=== PATIENT | female | born 1990 | race Caucasian/White ===

== ENCOUNTER → 2017-09-19 11:19 | Outpatient (REF) | payer OTHER, SELFPAY ==
[2017-09-19 14:29] LABS: Basophils % 0.5 % (0.1-2.0); Eosinophils # 0.1 K/mm3 (0.0-0.4); Eosinophils % 1.1 % (0.1-12.0); Hematocrit 44.1 % (37.0-47.0); Hemoglobin 13.9 g/dL (12.2-16.2); Lymphocytes # 2.2 K/mm3 (0.7-4.5); Lymphocytes % 26.9 K/mm3 (10-50); Mean Corpuscular HGB Conc 31.5 g/dL (31.8-35.4); Mean Corpuscular Hemoglobin 29.4 pg (27.0-31.2); Mean Corpuscular Volume 93.5 fl (81-99); Mean Platelet Volume 9.3 fl (7.4-10.4); Monocytes # 0.4 K/mm3 (0.1-1.0); Neutrophils # 5.4 K/mm3 (1.8-7.8); Neutrophils % 66.5 % (37.0-80.0); Platelet Count 247 K/mm3 (142-424); Red Blood Count 4.72 M/mm3 (4.20-5.40); Red Cell Distribution Width 12.7 % (11.5-17.5); White Blood Count 8.1 K/mm3 (4.8-10.8)
[2017-09-19 14:33] LABS: Alanine Aminotransferase 26 U/L (12-78); Albumin Level 4.2 gm/dL (3.4-5.0); Albumin/Globulin Ratio 1.4 (1.1-1.8); Alkaline Phosphatase 110 U/L (46-116); Anion Gap 11.5 mEq/L (5-15); Aspartate Amino Transferase 19 U/L (15-37); Bilirubin,Total 0.3 mg/dL (0.2-1.0); Blood Urea Nitrogen 10 mg/dL (7-18); Calcium 9.5 mg/dL (8.5-10.1); Carbon Dioxide 28 mmol/L (21.0-32.0); Chloride 105 mmol/L (98-107); Cholesterol 123 mg/dL (140-200); Creatinine,Serum 0.76 mg/dL (0.55-1.02); Estimated Glomerular Filt Rate 93 ml/min (>60); Free T4 (Free Thyroxine) 1.05 ng/dl (0.76-1.46); GFR (African American) 112 ML/MIN (>60); Glucose 87 mg/dL (74-106); HDL Cholesterol 41 mg/dL (29-89); LDL Cholesterol 60 mg/dL (0-130); Potassium 4.5 mmoL/L (3.5-5.1); Sodium 140 mmol/L (136-145); Total Protein,Serum 7.2 gm/dL (6.4-8.2); Triglycerides 108 mg/dL (30-200); VLDL Cholesterol 22 mg/dL (0-40)
[2017-09-19 14:47] LABS: Hemoglobin A1C 5.3 % (0.0-7.0)
[2017-09-20 06:19] LABS: Vitamin D 25 Hydroxy 13.4 ng/mL (30.0-100.0)
== END ==
LOC: LAB 11:19
PROVIDERS: Visit Provider Nurse Practitioner Family
DX: R10.11 Right upper quadrant pain (principal); R10.9 Unspecified abdominal pain; R53.83 Other fatigue
CPT/HCPCS: 80053; 80061; 82652; 83036; 84439; 84443; 85025

== ENCOUNTER → 2020-06-22 18:50 | Outpatient (CLI) | payer OTHER, SELFPAY ==
[2020-06-22 19:04] LABS: Basophils % 0.6 % (0.1-2.0); Eosinophils # 0.1 K/mm3 (0.0-0.4); Eosinophils % 1.1 % (0.1-12.0); Hematocrit 45.5 % (37.0-47.0); Hemoglobin 14.3 g/dL (12.2-16.2); Lymphocytes # 2.2 K/mm3 (0.7-4.5); Lymphocytes % 36.3 % (10-50); Mean Corpuscular HGB Conc 31.4 g/dL (31.8-35.4); Mean Corpuscular Volume 95.8 fl (81-99); Mean Platelet Volume 10.6 fl (7.4-10.4); Monocytes # 0.5 K/mm3 (0.1-1.0); Monocytes % 7.6 % (1.7-9.3); Neutrophils # 3.4 K/mm3 (1.8-7.8); Neutrophils % 54.4 % (37.0-80.0); Platelet Count 303 K/mm3 (142-424); Red Blood Count 4.75 M/mm3 (4.20-5.40); Red Cell Distribution Width 12.7 % (11.5-17.5); White Blood Count 6.2 K/mm3 (4.8-10.8)
[2020-06-22 20:37] LABS: Alanine Aminotransferase 171 U/L (12-78); Albumin Level 4.6 g/dl (3.5-5.0); Albumin/Globulin Ratio 1.4 (1.1-1.8); Alkaline Phosphatase 142 U/L (38-126); Anion Gap 12.6 mEq/L (5-15); Aspartate Amino Transferase 81 U/L (14-36); Bilirubin,Total 0.3 mg/dl (0.2-1.3); Blood Urea Nitrogen 17 mg/dl (7-17); Carbon Dioxide 26 mmol/L (22.0-30.0); Chloride 105 mmol/L (98-107); Chol/HDL Ratio 2.6 (1-3.5); Cholesterol 157 mg/dl (140-200); Estimated Glomerular Filt Rate 100 ml/min (>60); GFR (African American) 121 ML/MIN (>60); Globulin 3.2 g/dL (1.3-3.2); Glucose 92 mg/dl (74-100); HDL Cholesterol 61 mg/dl (40-60); Potassium 4.6 mmoL/L (3.5-5.1); Sodium 139 mmol/L (136-145); Total Protein,Serum 7.8 g/dl (6.3-8.2); Triglycerides 90 mg/dl (30-150); VLDL Cholesterol 18 mg/dL (0-40)
[2020-06-22 20:49] LABS: Direct LDL Cholesterol 70.38 mg/dL (100-129)
[2020-06-22 20:54] LABS: 25-OH Vitamin D, Total 15.6 ng/mL (30-100)
[2020-06-22 20:55] LABS: Free T4 (Free Thyroxine) 1.07 ng/dl (0.78-2.19)
[2020-06-22 21:09] LABS: Thyroid Stimulating Hormone 1.44 uIU/mL (0.465-4.68)
[2020-06-24 13:44] LABS: Hep A Ab, IgM Negative (Negative); Hep A Ab, Total Positive (Negative); Hep B Core Ab, Total Negative (Negative)
[2020-06-25 10:15] LABS: Hep B Surface Ab, Qual Non Reactive (.)
[2020-06-26 14:47] LABS: HCV Genotype Charge YES; Hepatitis C Genotype 1a (.)
== END ==
PROVIDERS: Visit Provider Emergency Medicine
DX: B19.20 Unspecified viral hepatitis C without hepatic coma (principal); R53.83 Other fatigue; E55.9 Vitamin D deficiency, unspecified
CPT/HCPCS: 80053; 80061; 82306; 84439; 84443; 85025; 86704; 86706; 86708; 87522; 87902

== ENCOUNTER 2020-10-09 02:11 | Emergency (ER) | payer OTHER, SELFPAY ==
[2020-10-09 02:14] VITALS: BP 106/77; PULSE 103; RESP 18; TEMP 36.8; O2SAT 100; BMI 26.6
--- NOTE | 2020-10-09 02:15 | ECG_ITS ---
APPROVED REPORT Exam: Resting ECG HR:96 bpm ECG Measurements Heart Rate 96 AXES MN 156 P 74 QRSd 88 QRS 75 QT 356 T 43 QTc 449 Conclusion Normal sinus rhythm Normal ECG Electronically signed by : Lupillo Jimenez, 10/11/2020 07:13:53
[2020-10-09 02:41] LABS: Chloride 98 mmol/L (98-107); Sodium 133 mmol/L (136-145)
[2020-10-09 02:42] LABS: Potassium 4.6 mmoL/L (3.5-5.1)
[2020-10-09 02:44] LABS: Alanine Aminotransferase 188 U/L (12-78); Albumin Level 4.7 g/dl (3.5-5.0); Alkaline Phosphatase 121 U/L (38-126); Anion Gap 13.6 mEq/L (5-15); Aspartate Amino Transferase 107 U/L (14-36); Bilirubin,Total 0.5 mg/dl (0.2-1.3); Blood Urea Nitrogen 17 mg/dl (7-17); Calcium 9.1 mg/dl (8.4-10.2); Carbon Dioxide 26 mmol/L (22.0-30.0); Creatinine Clearance Estimated 93 mL/min (50-200); Estimated Glomerular Filt Rate 66 ml/min (>60); GFR (African American) 80 ML/MIN (>60); Globulin 2.4 g/dL (1.3-3.2); Glucose 242 mg/dl (74-100); Total Protein,Serum 7.1 g/dl (6.3-8.2)
[2020-10-09 02:45] LABS: Acetaminophen < 10 ug/ml (10-30); Salicylate < 1.0 mg/dL (2.0-20.0)
[2020-10-09 02:46] LABS: Ethyl Alcohol < 10 mg/dl (0-10)
[2020-10-09 02:48] LABS: HCG Qualitative, Serum Negative (Negative)
[2020-10-09 02:55] VITALS: BP 128/69; PULSE 96; RESP 18; TEMP 36.6; O2SAT 100
[2020-10-09 02:58] LABS: Troponin I < 0.01 ng/ml (0.00-0.034)
== END 2020-10-09 02:59 | disposition left against medical advice (07) ==
LOC: ER 02:34
PROVIDERS: Emergency Provider Emergency Medicine; PCP Emergency Medicine
DX: Z53.21 Procedure and treatment not carried out due to patient leaving prior to being seen by health care provider (principal); T50.901A Poisoning by unspecified drugs, medicaments and biological substances, accidental (unintentional), initial encounter
CPT/HCPCS: 80053; 80329; 84484; 84703; 93005; 99282

== ENCOUNTER 2020-12-19 08:54 | Emergency (ER) | payer OTHER, SELFPAY ==
[2020-12-19 08:55] VITALS: BP 111/73; PULSE 76; RESP 16; TEMP 36.6; O2SAT 98; BMI 26.6
--- NOTE | 2020-12-19 08:55 | ECG_ITS ---
APPROVED REPORT Exam: Resting ECG HR:63 bpm ECG Measurements Heart Rate 63 AXES NC 138 P 4 QRSd 80 QRS 13 QT 412 T 8 QTc 421 Conclusion Normal sinus rhythm Normal ECG Electronically signed by : Lupillo Jimenez, 12/20/2020 20:57:57
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
--- NOTE | 2020-12-19 08:59 | XR_ITS ---
PROCEDURE INFORMATION: Exam: XR Chest Exam date and time: 12/19/2020 8:59 AM Age: 30 years old Clinical indication: Chest pressure; Patient HX: Chest pain , smoker, no SX; Additional info: Cp TECHNIQUE: Imaging protocol: XR of the chest. Views: 1 view. COMPARISON: No relevant prior studies available. FINDINGS: Lungs: No consolidation. Pleural spaces: No pneumothorax. Heart/Mediastinum: No cardiomegaly. Bones/joints: No acute abnormality. IMPRESSION: No acute findings.
[2020-12-19 09:23] LABS: Basophils % 0.5 % (0.1-2.0); Eosinophils # 0.1 K/mm3 (0.0-0.4); Eosinophils % 1.4 % (0.1-12.0); Hemoglobin 13.1 g/dL (12.2-16.2); Lymphocytes # 1.7 K/mm3 (0.7-4.5); Lymphocytes % 36.6 % (10-50); Mean Corpuscular HGB Conc 32.6 g/dL (31.8-35.4); Mean Corpuscular Hemoglobin 29.8 pg (27.0-31.2); Mean Corpuscular Volume 91.4 fl (81-99); Mean Platelet Volume 8.6 fl (7.4-10.4); Monocytes # 0.4 K/mm3 (0.1-1.0); Monocytes % 8.4 % (1.7-9.3); Neutrophils # 2.5 K/mm3 (1.8-7.8); Neutrophils % 53.1 % (37.0-80.0); Platelet Count 211 K/mm3 (142-424); Red Blood Count 4.38 M/mm3 (4.20-5.40); Red Cell Distribution Width 13.1 % (11.5-17.5); White Blood Count 4.6 K/mm3 (4.8-10.8)
[2020-12-19 09:30] LABS: Chloride 106 mmol/L (98-107); Sodium 140 mmol/L (136-145)
[2020-12-19 09:33] LABS: Blood Urea Nitrogen 15 mg/dl (7-17); Creatinine Clearance Estimated 116 mL/min (50-200); Estimated Glomerular Filt Rate 85 ml/min (>60); GFR (African American) 103 ML/MIN (>60)
[2020-12-19 09:34] LABS: Calcium 8.9 mg/dl (8.4-10.2); Carbon Dioxide 27 mmol/L (22.0-30.0); Glucose 89 mg/dl (74-100)
[2020-12-19 09:39] LABS: HCG Qualitative, Serum Negative (Negative)
[2020-12-19 09:49] LABS: Troponin I < 0.01 ng/ml (0.00-0.034)
[2020-12-19 10:13] VITALS: BP 127/68; PULSE 88; RESP 16; TEMP 36.8; O2SAT 98
== END 2020-12-19 10:15 | disposition home or self-care (01) ==
PROVIDERS: Emergency Provider Family Medicine; PCP Emergency Medicine
DX: R07.89 Other chest pain (principal); F41.8 Other specified anxiety disorders; F17.210 Nicotine dependence, cigarettes, uncomplicated; Z79.899 Other long term (current) drug therapy
CPT/HCPCS: 71045; 80048; 84484; 84703; 85025; 93005; 99283

== ENCOUNTER 2021-01-29 14:55 | Emergency (ER) | payer OTHER, SELFPAY ==
[2021-01-29 17:28] VITALS: BP 115/66; PULSE 91; RESP 22; TEMP 36.7; O2SAT 98; BMI 26.7
[2021-01-29 17:38] VITALS: BP 115/66; PULSE 91; RESP 22; TEMP 36.8
--- NOTE | 2021-01-29 18:26 | HMH.EDUTC ---
[facility] [place] Impression: Viral syndrome, Exposure to COVID-19 virus Disposition: Home, Self-Care Condition on Discharge: Good Instructions: DI for Viral Syndrome, DI for COVID-19 (Suspected or Confirmed ), Preventing the Spread of Coronavirus Discharge Instructions Additional Instructions: Drink plenty of fluids. Take tylenol for pain or fever. Return if you begin to have difficulty breathing. Follow up with your regular doctor. GO TO THE ER FOR ANY WORSENING SYMPTOMS Quarantine until you know the results of your covid-19 test. If it is positive, the health department should call you and give you further instructions about your length of Quarantine and other things. Notify your school or workplace of your results and follow their instructions regarding return to work/school. Prescriptions: Brompheniramine/Pseudoephed/Dm [Bromfed Dm Cough Syrup] 5 ml PO Q6HP PRN #240 ml PRN Reason: Cough Transmission Status: Received by [facility] #[id number] Ondansetron [Zofran 4mg ODT] 4 mg PO DAILYP PRN #12 tab PRN Reason: Nausea Transmission Status: Received by [facility] #[id number] Referrals: Adrian Feliciano MD [Primary Care Provider] - Forms: Work/School Release Time of Disposition: 18:27 Medical Decision Making - Medical Records Medical records reviewed: No: I reviewed the patient's medical records. - Hugh Inquiry Pt receiving controlled substance: No Vital Signs: 01/29/21 17:28 01/29/21 17:38 Temperature 98.1 F 98.2 F Temperature Source Temporal Artery Scan Pulse Rate 91 H Pulse Rate [Left] 91 H Respiratory Rate 22 22 Blood Pressure 115/66 Blood Pressure [Right Arm] 115/66 Blood Pressure Mean [Right Arm] 82 02 Sat by Pulse Oximetry 98 - Lab Data Lab Results 01/29/21 22:38: Strep Scn Rapid Clinic Negative Orders (Tests/Meds): ORDERS Category Date Time Status Strep Screen Confirmation Stat Micro 01/29/21 22:38 [place] [facility] [place] - General Stated complaint: covid test Time Seen by Provider: 01/29/21 17:45 Mode of Arrival: Ambulatory Source of Information: Patient Limitations: No Limitations HEENT Symptoms (Recalled from RN notes): Yes (R ear ache) Resp Symptoms (Recalled from RN notes): Yes (cough) Skin Symptoms (Recalled from RN notes): No MS Symptoms (Recalled from RN notes): No Functional Status (Recalled from RN notes): body aches and chills - History of Present Illness Provider Complaint: pt c/o cough, stomach ache, R ear ache, myalgia and chills. - Related Data Previous Rx's Medication Instructions Recorded cholecalciferol (vitamin D3) 25 25 mcg PO DAILY 90 Days #90 cap 06/26/20 mcg (1,000 unit) capsule ergocalciferol (vitamin D2) 1,250 1,250 mcg PO WEEKLY #5 cap 06/26/20 mcg (50,000 unit) capsule buspirone 7.5 mg tablet See Rx Instructions .ROUTE 11/04/20 .COMPLEX #180 tab bupropion HCl 100 mg tablet See Rx Instructions .ROUTE 11/05/20 .COMPLEX #180 tab Brompheniramine/Pseudoephed/Dm 5 ml PO Q6HP PRN #240 ml 01/29/21 [Bromfed Dm Cough Syrup] Ondansetron [Zofran 4mg ODT] 4 mg PO DAILYP PRN #12 tab 01/29/21 Allergies Allergy/AdvReac Type Severity Reaction Status Date / Time No Known Allergies Allergy Verified 06/22/20 09:18 - Worker's Comp Is this a Worker's Comp case?: No [facility] History - Hepatitis A Screen Drug use history?: No High risk sexual behaviors?: No History of sexually transmitted infection?: No Currently employed?: No Childcare worker?: No Do you have indoor plumbing?: Yes Do you have electricity?: Yes Attestation statement:: This patient has been screened for Hepatitis A risk factors. I have reviewed the patient's past medical history: Yes Medical History: Reports:: Anxiety, Depression Denies:: Cancer, Diabetes Mellitus Type 1, Diabetes Mellitus Type 2, MRSA Laterality Cases: Bilateral: Tonsillectomy, Other Other Surgeries: Yes: Amputation: No
[2021-01-29 22:39] LABS: UTC Strep Screen (Rapid) Negative (Negative)
--- NOTE | 2021-01-31 17:23 | PC.NURSE ---
informed patient that she is positive
== END 2021-01-29 18:32 | disposition home or self-care (01) ==
PROVIDERS: Emergency Provider Nurse Practitioner Family; PCP Emergency Medicine
DX: B34.9 Viral infection, unspecified (principal); U07.1 COVID-19
CPT/HCPCS: 87880; 99202; C9803; G0463; U0003; U0005

== ENCOUNTER 2021-04-10 08:24 | Emergency (ER) | payer OTHER, SELFPAY ==
[2021-04-10 08:24] VITALS: BP 105/69; PULSE 77; RESP 16; TEMP 36.6; O2SAT 96; BMI 25.7
--- NOTE | 2021-04-10 08:51 | HMH.EDGENADL ---
ED Disposition Clinical Impression: Dental infection Disposition: Home, Self-Care Condition on Discharge: Good Additional Instructions: Please follow-up with urgent dental clinic, they open at 7:30 in the morning, but is advised to get there earlier. Prescriptions: Clindamycin HCl 300 mg PO Q8 5 Days #30 cap Transmission Status: Pending to [facility] #[id number] Referrals: Adrian Feliciano MD [Primary Care Provider] - - Critical Care Critical Care Time: No Attestation: On 04/10/21, the high probability of a clinically significant, sudden or life threatening deterioration of the following system(s) required my full and direct attention, intervention and personal management. The time I documented below is in addition to time spent performing reported procedures but includes the following listed in this critical care notation. Medical Decision Making - Medical Records Medical records reviewed: Yes: I reviewed the patient's medical records. - Hugh Inquiry Pt receiving controlled substance: No Vital Signs: 04/10/21 08:24 Temperature 98 F Temperature Source Oral Pulse Rate [Radial] 77 Respiratory Rate 16 Blood Pressure [Right Arm] 105/69 L Blood Pressure Mean [Right Arm] 81 Blood Pressure Position [Right Arm] Sitting 02 Sat by Pulse Oximetry 96 Oxygen Delivery Method Room Air Orders (Tests/Meds): ED MEDICATIONS Discontinued Medications Generic Name Dose Route Start Last Admin Trade Name Sohailq PRN Reason Stop Dose Admin Ibuprofen 600 mg 04/10/21 08:50 Ibuprofen 600 Mg Tablet PO 04/10/21 08:51 ONCE ONE Medical Decision Narrative: Patient is a 30-year-old female presents the ED today for further evaluation of left mandibular molar pain. Patient is well-appearing on initial evaluation in no acute distress with stable vital signs, there is no large abscess on exam at the tooth site, patient does not have any compromise of airway breathing or circulation, no systemic symptoms of fever, although the tooth does appear to be infected. Will prescribe clindamycin, and perform nerve block of the area. Patient briefed on the usage and caution of use of antibiotics, encouraged to use probiotics during the time she is taking these, informed of evidence of worsening infection and indications return to the ED. Given the patient's appointment is 10 days away, I have given her referral information for several urgent care dental clinics down at [facility] and down in [place], which will be able to see her sooner. General Adult HPI - General Chief complaint: PAIN Stated complaint: toothache Time Seen by Provider: 04/10/21 08:51 Mode of Arrival: Ambulatory Limitations: No Limitations Description of Symptoms (Recalled from ER Triage Doc. by RN): TO ED PER PVT CAR WITH C/O LT LOWER TOOTH PAIN X SEVERAL WEEKS STATES HAS AN APPT WITH DENTAL 04/20. TAKING TYLENOL AND IBUPROFEN AT HOME WITH NO RELIEF OF SYMPTOMS. PT DENIES ANY FEVERS, CHILLS - History of Present Illness HPI narrative: Patient is a 30-year-old female presents the ED today for further evaluation of left mandibular molar pain. Patient states that this pain has been present for a month, but has exacerbated in the last couple of days. Patient states she has a history of IV drug use, and states that she has multiple teeth that need to be taken care of, has an appointment scheduled for the of this month, but states that she presents today as the pain is too much for her to eat at home. Patient states she has been able to swallow well, without difficulty with states that there is a lot of pain associated in the left lower mandible area. [place] any fevers, chills, shortness of breath chest pain cough, rhinorrhea, abdominal pain nausea or vomiting. - Related Data Previous Rx's Medication Instructions Recorded cholecalciferol (vitamin D3) 25 25 mcg PO DAILY 90 Days #90 cap 06/26/20 mcg (1,000 unit) capsule er
[2021-04-10 09:10] VITALS: BP 120/78; PULSE 78; RESP 16; TEMP 37; O2SAT 98
== END 2021-04-10 09:11 | disposition home or self-care (01) ==
PROVIDERS: Emergency Provider Student in an Organized Health Care Education/Training Program; PCP Emergency Medicine
DX: K04.7 Periapical abscess without sinus (principal); F17.210 Nicotine dependence, cigarettes, uncomplicated; F41.8 Other specified anxiety disorders
CPT/HCPCS: 99281

== ENCOUNTER 2021-05-09 08:33 | Emergency (ER) | payer OTHER, SELFPAY ==
[2021-05-09 08:34] VITALS: BP 109/70; PULSE 60; RESP 20; TEMP 36.6; O2SAT 98; BMI 25.7
--- NOTE | 2021-05-09 08:38 | HMH.EDGENADL ---
ED Disposition Clinical Impression: Vertebral compression fracture Qualifiers: Encounter type: initial encounter Fracture of vertebra location: thoracic Thoracic vertebra fracture level: T12 Qualified Code(s): S22.080A - Wedge compression fracture of T11-T12 vertebra, initial encounter for closed fracture Disposition: Home, Self-Care Condition on Discharge: Fair Instructions: DI for Vertebral Fracture Additional Instructions: Percocet as needed for pain. Off work until seen by spine surgeon. Follow-up with spine surgery, call for appointment: Dr. Dread Barcenas [facility] [address] [place] [address] OR [facility] [address], [place] [address] Take your x-ray/CT disc with you to appointment. Additional instructions for CONTROLLED SUBSTANCES: You have been prescribed a medication that is a controlled substance. Controlled substances include pain medications known as opiates and sedative nerve medications known as benzodiazepines. Tramadol, fioricet, and gabapentin are also controlled substances. Some common opiates include: Codeine (such as Tylenol #3) Hydrocodone (Vicodin, Lortab, Lorcet, [place]) Oxycodone (Percocet, Percodan, Oxycodone, Oxy IR) Some common benzodiazepines include: Diazepam (Valium) Lorazepam (Ativan) Alprazolam (Xanax) Clonazepam (Klonopin) Oxazepam (Serax) All of these controlled substances are highly addictive and frequently abused. Misuse can and frequently does lead to addiction as well as overdose and . Medication should be stored in a locked cabinet or other secure storage unit. Do not store the medication in a motor vehicle. Short term supplies, 3 days or less, are prescribed because of the highly addictive nature of the medication. Any of the controlled substance medication NOT taken should be disposed of properly and NOT SAVED. The recommended method of disposing of unused medications is: Place the medicines in a sealable plastic bag. If the medicine is a solid, crush it or add water to dissolve it. Add something undesirable (cat litter, coffee grounds, etc.) Dispose of sealed bag in household trash Do not flush or pour unused medicines down a sink or drain. Controlled substances should not be shared, given away or sold. Because of the addictive nature and frequent abuse, these medications are sometimes stolen. These medications should be kept in a safe place where they cannot be stolen. Do not keep them in your car or purse. Lost or stolen prescriptions for controlled substances WILL NOT BE REFILLED in this emergency department, regardless of whether a police report was filed. Prescriptions: Oxycodone HCl/Acetaminophen [Percocet 5/325mg tablet] 1 tab PO Q6HP PRN #20 tablet PRN Reason: Moderate To Severe Pain Transmission Status: Sent to [id number] Oxycodone HCl/Acetaminophen [Percocet 5/325mg tablet] 1 tab PO Q6HP PRN #20 tab PRN Reason: Moderate To Severe Pain Transmission Status: Received by [facility] #[id number] Referrals: Adrian Feliciano MD [Primary Care Provider] - Forms: Work/School Release - Critical Care Critical Care Time: No Attestation: On , the high probability of a clinically significant, sudden or life threatening deterioration of the following system(s) required my full and direct attention, intervention and personal management. The time I documented below is in addition to time spent performing reported procedures but includes the following listed in this critical care notation. Medical Decision Making - Hugh Inquiry Pt receiving controlled substance: Yes Hugh was queried for this patient: Yes Risks and benefits of using a controlled substance: were discussed with pt by me Vital Signs: 05/09/21 08:34 Temperature 97.8 F Temperature Source Ora
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
--- NOTE | 2021-05-09 08:59 | PC.NURSE ---
blood sent to the lab
[2021-05-09 09:15] VITALS: BP 132/74; PULSE 78; RESP 16; O2SAT 98
[2021-05-09 09:19] LABS: HCG Qualitative, Serum Negative (Negative)
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
[2021-05-09 12:24] VITALS: BP 122/68; PULSE 78; RESP 16; TEMP 36.8; O2SAT 97
== END 2021-05-09 12:25 | disposition home or self-care (01) ==
PROVIDERS: Emergency Provider Emergency Medicine; PCP Emergency Medicine
DX: S22.080A Wedge compression fracture of T11-T12 vertebra, initial encounter for closed fracture (principal); V58.0XXA Driver of pick-up truck or van injured in noncollision transport accident in nontraffic accident, initial encounter; Y92.488 Other paved roadways as the place of occurrence of the external cause
CPT/HCPCS: 71045; 71275; 72128; 72131; 72170; 84703; 96367; 96374; 96375; 99282; J2405; Q9967

== ENCOUNTER → 2021-05-25 11:52 | Outpatient (CLI) | payer OTHER, SELFPAY ==
[2021-05-25 12:24] LABS: Basophils # 0.1 K/mm3 (0-0.2); Basophils % 1.3 % (0.1-2.0); Eosinophils # 0.1 K/mm3 (0.0-0.4); Hematocrit 44.3 % (37.0-47.0); Hemoglobin 14.1 g/dL (12.2-16.2); Lymphocytes % 36.6 % (10-50); Mean Corpuscular HGB Conc 31.8 g/dL (31.8-35.4); Mean Corpuscular Hemoglobin 29.9 pg (27.0-31.2); Mean Corpuscular Volume 93.9 fl (81-99); Mean Platelet Volume 9.1 fl (7.4-10.4); Monocytes # 0.3 K/mm3 (0.1-1.0); Monocytes % 5.9 % (1.7-9.3); Neutrophils % 55.2 % (37.0-80.0); Platelet Count 255 K/mm3 (142-424); Red Blood Count 4.72 M/mm3 (4.20-5.40); Red Cell Distribution Width 12.8 % (11.5-17.5); White Blood Count 5.4 K/mm3 (4.8-10.8)
[2021-05-25 12:39] LABS: INR 0.93 (0.9-1.1); Prothrombin Time 10.6 seconds (10.1-12.5)
[2021-05-25 12:53] LABS: Alanine Aminotransferase 76 U/L (12-78); Albumin/Globulin Ratio 1.8 (1.1-1.8); Alkaline Phosphatase 119 U/L (38-126); Anion Gap 13.6 mEq/L (5-15); Aspartate Amino Transferase 47 U/L (14-36); Bilirubin,Total 0.6 mg/dl (0.2-1.3); Blood Urea Nitrogen 15 mg/dl (7-17); Calcium 10.1 mg/dl (8.4-10.2); Carbon Dioxide 28 mmol/L (22.0-30.0); Chloride 100 mmol/L (98-107); Estimated Glomerular Filt Rate 99 ml/min (>60); GFR (African American) 120 ML/MIN (>60); Globulin 2.8 g/dL (1.3-3.2); Glucose 86 mg/dl (74-100); Potassium 4.6 mmoL/L (3.5-5.1); Sodium 137 mmol/L (136-145); Total Protein,Serum 7.8 g/dl (6.3-8.2)
[2021-05-26 07:11] LABS: HIV Screen 4th Generation wRfx Non Reactive (Non Reactive)
[2021-05-26 12:10] LABS: Hep A Ab, IgM Negative (Negative); Hep A Ab, Total Positive (Negative); Hep B Core Ab, Total Negative (Negative); Hep B Surface Ab, Qual Non Reactive (.); Hepatitis B Surface Antigen Negative (Negative); Hepatitis C Antibody >11.0 s/co ratio (0.0-0.9)
[2021-05-28 02:08] LABS: ALT (SGPT) P5P 83 IU/L (0-40); Alpha 2-Macroglobulins, Qn 167 mg/dL (110-276); Apolipoprotein A-1 132 mg/dL (116-209); Bilirubin, Total 0.3 mg/dL (0.0-1.2); Fibrosis Score 0.06 (0.00-0.21); GGT 30 IU/L (0-60); Haptoglobin 155 mg/dL (33-278); Necroinflammat Activity Grade A1-A2 (.)
[2021-05-28 20:08] LABS: HCV Genotype Charge YES; Hepatitis C Genotype 1a (.)
== END ==
PROVIDERS: Visit Provider Emergency Medicine
DX: B19.20 Unspecified viral hepatitis C without hepatic coma (principal)
CPT/HCPCS: 36415; 80053; 81596; 85025; 85610; 86703; 86704; 86706; 86708; 87340; 87380; 87522; 87902; G0432